=== PATIENT | female | born 1980 | race Caucasian/White ===

== ENCOUNTER 2017-02-06 20:18 | Emergency (ER) | payer BC ==
[2017-02-06 20:31] VITALS: BP 105/53; BMI 17.5
[2017-02-06] MEDS ORDERED: PHENERGAN INJ 25 MG IM ONE (20:36)
[2017-02-06] MEDS ORDERED: DEMEROL INJ IM ONE (20:36)
--- NOTE | 2017-02-06 20:40 | DR.GENAD ---
HPI - PCP Primary Care Physician: nina - HPI Comment HPI Comment: HEADACHE STARTED YESTERDAY. HOME MED DID NOT RELIEVE HEADACHE. NO FEVER. DENIES SINUS DRAINAGE OR TRAUMA. HISTORY MIGRAINE HEADACHE. HAVE HAD HEAD CTS IN PAST. - Complaint/Symptoms Chief Complaint Doctors Comments: HEADACHE, MIGRAINE TIMES ONE DAY WITH N/V. Chief Complaint:: pt c/o migraine meaghan today pt states" it's the worst headache ever pt took fiorecet, toradol phenergan with no relief - Nurses notes reviewed Nurses Notes Review: Yes - Source History Provided: Patient - Mode of Arrival Mode of Arrival: Ambulatory - Timing Onset of Chief Complaint: 02/06/17 Came on: Suddenly - Duration Duration: Constant Duration: Days - Severity Severity: Moderate PMH - PMH Past Medical History: Yes Past Medical History: Migraines Past Medical History Comment: fibromyalgia Past Surgical History: Yes Surgical History: No History - Family History History of Family Medical Conditions: Yes Family Medical History: [place], Hypertension - Social History Does any household member use tobacco: No Alcohol Use: None Do you use any recreational Drugs:: No Lives With: Family Lives Where: Home - infectious screening In the last 2 months have you had wt loss of >10#?: NO Have you had fever, night sweats or hemotysis?: No Have you traveled outside the country in the last 6 months?: No Isolation: Standard ROS - Review of Systems Constitutional: No Symptoms Reported Eyes: Photophobia. negative: Eye Pain, Blurred Vision, Discharge ENTM: No Symptoms Reported. negative: Ear Pain, Nose Discharge, Nose Congestion , Throat Pain Respiratoy: No Symptoms Reported. negative: Productive Cough, Short of Breath, Wheezing, Hemoptysis Cardiovascular: No Symptoms Reported. negative: Chest Pain Gastrointestinal/Abdominal: Nausea, Vomiting. negative: Abdominal Pain, Constipation, Diarrhea Genitourinary: negative: Dysuria, Frequency, Hematuria Neurological: Headache. negative: Weakness, Dizziness Musculoskeletal: No Symptoms Reported Integumentary: No Symptoms Reported Hematologic/Lymphatic: No Symptoms Reported Endocrine: No Symptoms Reported All Other Systems: Reviewed and Negative PE - Vital Signs Vitals: Temperature 98.6 F Pulse Rate 128 Respiratory Rate 22 Blood Pressure 105/53 O2 Sat by Pulse Oximetry 99 - General Limitations: No Limitations General Appearance: Alert - Head Head Exam: Normal Inspection - Eyes Eye exam: Normal Appearance - ENT ENT Exam: Normal External Ear Exam External Ear Exam: Normal External Inspection TM/Canal Exam: Bilateral Normal Nose Exam: Normal Nose Exam Mouth Exam: Normal Inspection Throat Exam: Normal Inspection - Neck Neck Exam: Trachea Midline - Chest Chest Inspection: Symmetric Chest Wall Rise - Respiratory Respiratory Exam: Normal Lung Sounds Bilat Respiratory Exam: Bilateral Clear to Auscultation - Cardiovascular Cardiovascular Exam: Regular Rate, Normal Rhythm, Normal Heart Sounds - Abdominal Exam Abdominal Exam: Normal Bowel Sounds, Soft. negative: Tenderness - Extremities Extremities Exam: Normal Inspection - Back Back Exam: Normal Inspection - Neurologic Neurological Exam: Alert, Oriented X3, CN II-XII Intact, Normal Gait, Reflexes Normal. negative: Motor Sensory Deficit - Psychiatric Psychiatric Exam: Anxious - Skin Skin Exam: Normal Color MDM - Differential Diagnosis Differential Diagnosis: MIGRAINE HEADACHE Course - Treatment Treatment: SEE ORDERS. IM DEMOROL, PAIN IMPROVED. - Reevaluation 1st: Improved - Education/Counseling Education/Counseling: Patient, Family, Education Educated On: Treatment, Diagnosis, Needs for Follow Up - Diagnosis Discharge Problem: Migraine Qualifiers: Migraine type: without aura Status migrainosus presence: without status migrainosus Intractability: intractable Qualified Code(s): G43.019 - Migraine without aura, intractable, without status migrainosus - Discharge Plan Disposition: 01 HOME, SELF-CARE Condition: Stable - Follow ups/Referrals Follow ups/Referrals: NFD,None [Primary Care Provider] - 2 days - Instructions Instructions: Migraine Headache Additional Instructions: RETURN TO ED IF WORSE.
[2017-02-06] MEDS ORDERED: PHENERGAN INJ 25 MG ONE (20:41)
[2017-02-06] MEDS ORDERED: DEMEROL INJ ONE (20:41)
== END 2017-02-06 21:17 | disposition home or self-care (01) ==
LOC: ER 20:26
DX: G43.019 Migraine without aura, intractable, without status migrainosus (principal)
CPT/HCPCS: 96372; 99282; 99283; J2175; J2550

== ENCOUNTER 2017-02-07 12:47 | Emergency (ER) | payer BC ==
[2017-02-07 12:54] VITALS: BP 111/81; BMI 16.5
[2017-02-07] MEDS ORDERED: NS 500 ML IV 500 ML IV ONE (13:27)
[2017-02-07] MEDS ORDERED: DECADRON INJ IV ONE (13:27)
[2017-02-07] MEDS ORDERED: PHENERGAN INJ 25 MG IV ONE (13:27)
[2017-02-07] MEDS ORDERED: TORADOL 30 MG VIAL IVP ONE (13:30)
--- NOTE | 2017-02-07 13:30 | DR.HEADACH ---
HPI - Time Seen Time seen: 13:25 - Primary Care Physician Primary Care Physician: MAXIMINO - Complaint/Symptoms Chief Complaint Doctors Comments: Patient is a frequent visitory to the ED for Migraine treatment. She is presently seeing a neurologist in [place] Chief Complaint:: MIGARINE AND NAUSEA Self Treatment fo Chief Complaint: HAD IT FOR TWO DAYS, BEEN TO ER. GAVE MEDS AND WENT HOME. - Source History Provided: Patient - Mode of Arrival Mode of Arrival: Ambulatory - Timing Onset of Chief Complaint: 02/07/17 PMH - PMH Past Medical History: Yes Past Medical History: Migraines Past Surgical History: Yes Surgical History: No History - Family History History of Family Medical Conditions: Yes Family Medical History: [place], Hypertension - Social History Does any household member use tobacco: No Alcohol Use: None Do you use any recreational Drugs:: No Lives With: Spouse Lives Where: Home - infectious screening In the last 2 months have you had wt loss of >10#?: NO Have you had fever, night sweats or hemotysis?: No Have you traveled outside the country in the last 6 months?: No Isolation: Standard ROS - Review of Systems Eyes: No Symptoms Reported ENTM: No Symptoms Reported Respiratoy: No Symptoms Reported Cardiovascular: No Symptoms Reported Gastrointestinal/Abdominal: No Symptoms Reported Genitourinary: No Symptoms Reported Neurological: No Symptoms Reported Musculoskeletal: No Symptoms Reported Integumentary: No Symptoms Reported Hematologic/Lymphatic: No Symptoms Reported Endocrine: No Symptoms Reported Psychiatric: No Symptoms Reported All Other Systems: Reviewed and Negative PE - Vital Signs Vitals: Temperature 98.5 F Pulse Rate 129 Respiratory Rate 20 Blood Pressure 111/81 - General Limitations: No Limitations General Appearance: Alert - Head Head Exam: Normal Inspection, Atraumatic - Eyes Eye exam: Normal Appearance, PERRL Eyelids: Normal Inspection: Bilateral Pupils: Regular, Round: Bilateral Sclera/Conjunctival: Normal Inspection: Bilateral - ENT ENT Exam: Normal Exam, Normal Oropharynx External Ear Exam: Normal External Inspection TM/Canal Exam: Bilateral Normal Nose Exam: Normal Nose Exam Mouth Exam: Normal Inspection Teeth Exam: Normal Inspection Throat Exam: Normal Inspection - Neck Neck Exam: Normal Inspection, Full ROM - Chest Chest Inspection: Normal Inspection - Respiratory Respiratory Exam: Normal Lung Sounds Bilat Respiratory Exam: Bilateral Clear to Auscultation - Cardiovascular Cardiovascular Exam: Regular Rate, Normal Rhythm - Abdominal Exam Abdominal Exam: Normal Inspection, Normal Bowel Sounds - Discharge Plan Condition: Stable - Follow ups/Referrals Follow ups/Referrals: Patricia GIL [Primary Care Provider] - 3 days - Instructions
[2017-02-07] MEDS ORDERED: NS 1000 ML 1,000 ML ONE (13:40)
[2017-02-07] MEDS ORDERED: TORADOL 30 MG VIAL ONE (13:41)
[2017-02-07] MEDS ORDERED: DECADRON INJ ONE (13:41)
[2017-02-07] MEDS ORDERED: PHENERGAN INJ 25 MG ONE (13:41)
[2017-02-07] MEDS ORDERED: DEMEROL INJ IVP ONE (14:31)
[2017-02-07] MEDS ORDERED: DEMEROL INJ ONE (14:33)
== END 2017-02-07 15:50 | disposition home or self-care (01) ==
LOC: ER 12:55
DX: G43.909 Migraine, unspecified, not intractable, without status migrainosus (principal); R11.0 Nausea
CPT/HCPCS: 96365; 96374; 96375; 99282; 99283; A4222; J1100; J1885; J2175; J2550

== ENCOUNTER 2017-04-14 14:30 | Emergency (ER) | payer BC ==
[2017-04-14 14:37] VITALS: BP 148/93; BMI 16.0
[2017-04-14] MEDS ORDERED: DEMEROL INJ ONE (16:37)
[2017-04-14] MEDS ORDERED: PHENERGAN INJ 25 MG ONE (16:37)
[2017-04-14] MEDS ORDERED: DEMEROL INJ IM ONE (16:42)
--- NOTE | 2017-04-14 16:42 | DR.HEADACH ---
HPI - Time Seen Time seen: 16:30 - Primary Care Physician Primary Care Physician: nina - HPI Comment HPI Comment: Headache - Complaint/Symptoms Chief Complaint Doctors Comments: Headache since yesterday afternoon. She had visual aura initially. Her home maintaince meds did not break the cycle. She' s had Nausea + vomitting. Light and sound makes the headache worse. Chief Complaint:: MIGRAINE STARTING APPROX YESTERDAY AROUND 13 AND WORSENED THIS AM Self Treatment fo Chief Complaint: Lorcet and others - Source History Provided: Patient - Mode of Arrival Mode of Arrival: Ambulatory - Timing Onset of Chief Complaint: 04/13/17 - Location Headache Location: Frontal, Temporal - Quality Quality: Throbbing - Severity Headache Severity: Mild, Severe - Modifying Factors Improves With: Nothing PMH - PMH Past Medical History: Yes Past Medical History: Headaches Past Medical History Comment: FIBROMYALGIA Past Surgical History: No Surgical History: No History - Family History History of Family Medical Conditions: Yes Family Medical History: Cancer Family Medical History Comment: MOTHER, BREAST - Social History Does patient currently use any type of tobacco product: No Have you used tobacco products in the last 12 months: No Type of Tobacco Use: None Does any household member use tobacco: No Alcohol Use: None Do you use any recreational Drugs:: No Lives With: Family Lives Where: Home - infectious screening In the last 2 months have you had wt loss of >10#?: NO Have you had fever, night sweats or hemotysis?: No Have you traveled outside the country in the last 6 months?: No Isolation: Standard ROS - Review of Systems Eyes: No Symptoms Reported ENTM: No Symptoms Reported Respiratoy: No Symptoms Reported Cardiovascular: No Symptoms Reported Gastrointestinal/Abdominal: No Symptoms Reported Genitourinary: No Symptoms Reported Neurological: Headache Musculoskeletal: No Symptoms Reported Integumentary: No Symptoms Reported Hematologic/Lymphatic: No Symptoms Reported Psychiatric: No Symptoms Reported All Other Systems: Reviewed and Negative PE - Vital Signs Vitals: Temperature 98.2 F Pulse Rate 126 Respiratory Rate 20 Blood Pressure 148/93 O2 Sat by Pulse Oximetry 97 - General Limitations: No Limitations General Appearance: Alert, In No Apparent Distress - Head Head Exam: Normal Inspection - Eyes Eye exam: Normal Appearance Eyelids: Normal Inspection: Bilateral Pupils: Regular, Round: Bilateral Sclera/Conjunctival: Normal Inspection: Bilateral - ENT ENT Exam: Normal Exam External Ear Exam: Normal External Inspection TM/Canal Exam: Bilateral Normal Nose Exam: Normal Nose Exam Mouth Exam: Normal Inspection Teeth Exam: Normal Inspection Throat Exam: Normal Inspection - Neck Neck Exam: Normal Inspection - Chest Chest Inspection: Normal Inspection - Respiratory Respiratory Exam: Normal Lung Sounds Bilat Respiratory Exam: Bilateral Clear to Auscultation - Cardiovascular Cardiovascular Exam: Regular Rate - Abdominal Exam Abdominal Exam: Normal Inspection, Normal Bowel Sounds, Soft - Extremities Extremities Exam: Normal Inspection - Back Back Exam: Normal Inspection - Neurologic Neurological Exam: Alert, Oriented X3 - Psychiatric Psychiatric Exam: Normal Affect, Normal Mood - Skin Skin Exam: Warm, Dry, Intact, Normal Color - Diagnosis Discharge Problem: Migraine headache with aura - Discharge Plan Disposition: 01 HOME, SELF-CARE Condition: Stable - Follow ups/Referrals Follow ups/Referrals: BHARGAV GIL [Primary Care Provider] - 3 days - Instructions
[2017-04-14] MEDS ORDERED: PHENERGAN INJ 25 MG IM ONE (16:43)
== END 2017-04-14 16:59 | disposition home or self-care (01) ==
LOC: ER 14:42
DX: G43.109 Migraine with aura, not intractable, without status migrainosus (principal)
CPT/HCPCS: 96372; 99282; J2175; J2550

== ENCOUNTER 2017-05-07 20:56 | Emergency (ER) | payer BC ==
[2017-05-07 21:02] VITALS: BP 109/72; BMI 16.5
[2017-05-07] MEDS ORDERED: PHENERGAN INJ 25 MG IM ONE (22:55)
[2017-05-07] MEDS ORDERED: DEMEROL INJ IM ONE (22:55)
--- NOTE | 2017-05-07 22:56 | DR.GENAD ---
HPI - HPI Comment HPI Comment: HISTORY MIGRAINE . BRAIN CT NORMAL 6 MONTHS AGO. TOOK HOME MEDS WITH NO RELIEF. NAUSEA, VOMITING AND PHOTOPHOBIA PRESENT. - Complaint/Symptoms Chief Complaint Doctors Comments: MIGRAINE HEADACHE SINCE SATURDAY. Chief Complaint:: PT STATES SHE HAS A HX OF MIGRAINES AND THIS ONE BEGAN SATURDAY Self Treatment fo Chief Complaint: PT HAS TAKEN FIORICET AND PHENERGAN WITH NO RELIEF - Nurses notes reviewed Nurses Notes Review: Yes - Source History Provided: Patient, Significant Other - Mode of Arrival Mode of Arrival: Ambulatory - Timing Onset of Chief Complaint: 05/05/17 Came on: Suddenly - Duration Duration: Constant Duration: Days - Severity Severity: Moderate PMH - PMH Past Medical History: Yes Past Medical History: Migraines, Headaches Past Surgical History: No Surgical History: No History - Family History History of Family Medical Conditions: Yes Family Medical History: Cancer, [place] - Social History Do you use any recreational Drugs:: No - infectious screening Have you traveled outside the country in the last 6 months?: No ROS - Review of Systems Constitutional: No Symptoms Reported, Weakness, Fatigue Eyes: No Symptoms Reported ENTM: No Symptoms Reported Respiratoy: No Symptoms Reported Cardiovascular: No Symptoms Reported Gastrointestinal/Abdominal: Nausea, Vomiting Genitourinary: No Symptoms Reported Neurological: Headache, Weakness Musculoskeletal: No Symptoms Reported Integumentary: No Symptoms Reported Hematologic/Lymphatic: No Symptoms Reported Endocrine: No Symptoms Reported All Other Systems: Reviewed and Negative PE - Vital Signs Vitals: Temperature 98.2 F Pulse Rate 112 Respiratory Rate 18 Blood Pressure 109/72 O2 Sat by Pulse Oximetry 98 - General Limitations: No Limitations General Appearance: Alert - Head Head Exam: Normal Inspection - Eyes Eye exam: PERRL, EOMI, Other (PHOTOPHOBIA) - ENT ENT Exam: Normal External Ear Exam External Ear Exam: Normal External Inspection TM/Canal Exam: Bilateral Normal Nose Exam: Normal Nose Exam Mouth Exam: Normal Inspection Throat Exam: Normal Inspection - Neck Neck Exam: Normal Inspection, Trachea Midline. negative: Tenderness, Meningismus, Lymphadenopathy - Chest Chest Inspection: Symmetric Chest Wall Rise - Respiratory Respiratory Exam: Normal Lung Sounds Bilat Respiratory Exam: Bilateral Clear to Auscultation - Cardiovascular Cardiovascular Exam: Regular Rate, Normal Rhythm, Normal Heart Sounds - Abdominal Exam Abdominal Exam: Normal Bowel Sounds, Soft. negative: Tenderness - Extremities Extremities Exam: Normal Inspection - Back Back Exam: Normal Inspection - Neurologic Neurological Exam: Alert, Oriented X3, CN II-XII Intact, Normal Gait, Reflexes Normal. negative: Motor Sensory Deficit - Psychiatric Psychiatric Exam: Anxious - Skin Skin Exam: Normal Color MDM - Additional Information Additional Information Obtained From: Family - Differential Diagnosis Differential Diagnosis: MIGRAINE HEADACHE Course - Treatment Treatment: SEE ORDER. IM MEDS IN ED FOR PAIN, IMPROVED. - Education/Counseling Education/Counseling: Patient, Family, Education Educated On: Treatment, Diagnosis, Needs for Follow Up - Diagnosis Discharge Problem: Migraine Qualifiers: Migraine type: with aura Status migrainosus presence: without status migrainosus Intractability: intractable Qualified Code(s): G43.119 - Migraine with aura, intractable, without status migrainosus - Discharge Plan Disposition: 01 HOME, SELF-CARE Condition: Stable - Follow ups/Referrals Follow ups/Referrals: Patricia GIL [Primary Care Provider] - 3 days - Instructions Instructions: Migraine Headache, [id number] Additional Instructions: RETURN TO ED IF WORSE.
[2017-05-07] MEDS ORDERED: DEMEROL INJ ONE (22:57)
[2017-05-07] MEDS ORDERED: PHENERGAN INJ 25 MG ONE (22:57)
== END 2017-05-07 23:15 | disposition home or self-care (01) ==
LOC: ER 21:08
DX: G43.119 Migraine with aura, intractable, without status migrainosus (principal)
CPT/HCPCS: 96372; 99282; J2175; J2550

== ENCOUNTER 2017-05-26 11:16 | Emergency (ER) | payer BC ==
[2017-05-26 11:22] VITALS: BP 124/90; BMI 16.5
[2017-05-26] MEDS ORDERED: PHENERGAN INJ 25 MG IM ONE (13:19)
[2017-05-26] MEDS ORDERED: DEMEROL INJ IM ONE (13:19)
--- NOTE | 2017-05-26 13:21 | DR.HEADACH ---
HPI - Time Seen Time seen: 13:20 - Primary Care Physician Primary Care Physician: MAXIMINO - HPI Comment HPI Comment: HOME MEDS DID NOT HELP. GETTING WORSE. NO TRAUMA, FEVER OR SINUS SYMTOMS. - Complaint/Symptoms Chief Complaint Doctors Comments: MIGRAINE HEADACHE WITH NAUSEA, VOMITING AND PHOTOPHOBIA TIMES SEVERAL HOURS. Chief Complaint:: MIGRAINE AND NAUSEA Pertinent History: Headache, Nausea/Vomitting Self Treatment fo Chief Complaint: PHENERGAN AND FIORCET. - Reviewed Nurses Notes Reviewed: Yes - Source History Provided: Patient - Mode of Arrival Mode of Arrival: Ambulatory - Timing Onset of Chief Complaint: 05/25/17 - Duration Since Onset: Constant Duration: Hours - Location Headache Location: Generalized - Quality Quality: Throbbing - Severity Headache Severity: Moderate - Context Headache Onset Circumstances: Spontaneous History of: None Prior Work Up: CT - Modifying Factors Improves With: Nothing Worsens: Nothing - Associated Signs and Symptoms Associated Symptoms: Nausea, Vomitting, Photophobia PMH - PMH Past Medical History: Yes Past Medical History: Migraines, Headaches Past Surgical History: No Surgical History: No History - Family History History of Family Medical Conditions: Yes Family Medical History: Cancer, [place] - Social History Does any household member use tobacco: No Alcohol Use: None Do you use any recreational Drugs:: No Lives With: Spouse Lives Where: Home - infectious screening In the last 2 months have you had wt loss of >10#?: NO Have you had fever, night sweats or hemotysis?: No Have you traveled outside the country in the last 6 months?: No Isolation: Standard ROS - Review of Systems Constitutional: No Symptoms Reported. negative: Chills, Fever Eyes: Photophobia. negative: Eye Pain, Discharge ENTM: No Symptoms Reported. negative: Ear Pain, Nose Discharge, Nose Congestion , Throat Pain Respiratoy: No Symptoms Reported Cardiovascular: No Symptoms Reported Gastrointestinal/Abdominal: Nausea, Vomiting. negative: Abdominal Pain Genitourinary: No Symptoms Reported. negative: Dysuria, Frequency, Hematuria Neurological: Headache Musculoskeletal: Muscle Pain Integumentary: No Symptoms Reported Hematologic/Lymphatic: No Symptoms Reported Endocrine: No Symptoms Reported All Other Systems: Reviewed and Negative PE - Vital Signs Vitals: Temperature 98.3 F Pulse Rate 133 Respiratory Rate 20 Blood Pressure 124/90 O2 Sat by Pulse Oximetry 100 - General Limitations: No Limitations General Appearance: Alert - Head Head Exam: Normal Inspection - Eyes Eye exam: Normal Appearance Eyelids: Normal Inspection: Bilateral Pupils: Regular, Round: Bilateral, Reactive: Bilateral Sclera/Conjunctival: Normal Inspection: Bilateral - ENT ENT Exam: Normal External Ear Exam External Ear Exam: Normal External Inspection TM/Canal Exam: Bilateral Normal Nose Exam: Normal Nose Exam Mouth Exam: Normal Inspection Teeth Exam: Normal Inspection Throat Exam: Normal Inspection - Neck Neck Exam: Trachea Midline - Chest Chest Inspection: Symmetric Chest Wall Rise - Respiratory Respiratory Exam: Normal Lung Sounds Bilat Respiratory Exam: Bilateral Clear to Auscultation - Cardiovascular Cardiovascular Exam: Regular Rate, Normal Rhythm, Normal Heart Sounds - Abdominal Exam Abdominal Exam: Normal Bowel Sounds, Soft. negative: Tenderness - Extremities Extremities Exam: Normal Inspection - Neurologic Neurological Exam: Alert, Oriented X3 - Psychiatric Psychiatric Exam: Anxious - Skin Skin Exam: Normal Color MDM - Additional Information Obtained Additional Information Obtained From: Family - Differential Diagnosis Differential Diagnosis: Considerations may include:: Migraine Course - Treatment Treatment: SEE ORDERS, IM PAIN MED, PAIN IMPROVING. - Reevaluation 1st: Improved - Education/Counseling Education/Counseling: Patient, Education Educated On: Treatment, Diagnosis, Needs for Follow Up - Diagnosis Discharge Problem: Migraine headache with aura Qualifiers: Status migrainosus presence: without status migrainosus Intractability: intractable Qualified Code(s): G43.119 - Migraine with aura, intractable, without status migrainosus - Discharge Plan Disposition: 01 HOME, SELF-CARE Condition: Stable - Follow ups/Referrals Follow ups/Referrals: Patricia GIL [Primary Care Provider] - 3 days - Instructions Instructions: Migraine Headache, [id number] Additional Instructions: RETURN TO ED IF WORSE.
[2017-05-26] MEDS ORDERED: DEMEROL INJ ONE (13:23)
[2017-05-26] MEDS ORDERED: PHENERGAN INJ 25 MG ONE (13:23)
== END 2017-05-26 13:50 | disposition home or self-care (01) ==
LOC: ER 11:28
DX: G43.119 Migraine with aura, intractable, without status migrainosus (principal)
CPT/HCPCS: 96372; 99282; J2175; J2550

== ENCOUNTER 2017-07-07 09:02 | Emergency (ER) | payer BC ==
[2017-07-07 09:08] VITALS: BP 118/72; BMI 16.5
--- NOTE | 2017-07-07 09:16 | DR.GENAD ---
HPI - PCP Primary Care Physician: ashley wood - HPI Comment HPI Comment: PAIN NOT RESPONDING TO HOME MEDS. DENIES SINUS SYMTOMS OR TRAUMA. NO FEVER. - Complaint/Symptoms Chief Complaint Doctors Comments: HEADACHE WITH NAUSEA TIMES 3 DAYS. Chief Complaint:: migraine for 3 days.she stated she took her headache meds but the pain is not anybetter. - Nurses notes reviewed Nurses Notes Review: Yes - Source History Provided: Patient - Mode of Arrival Mode of Arrival: Ambulatory - Timing Onset of Chief Complaint: 07/04/17 Came on: Suddenly - Duration Duration: Constant Duration: Days - Severity Severity: Moderate PMH - PMH Past Medical History: Yes Past Medical History: Migraines, Headaches Past Surgical History: No Surgical History: No History - Family History History of Family Medical Conditions: Yes Family Medical History: Cancer, [place] - Social History Does patient currently use any type of tobacco product: No Have you used tobacco products in the last 12 months: No Type of Tobacco Use: None Does any household member use tobacco: No Alcohol Use: None Do you use any recreational Drugs:: No Lives With: Family Lives Where: Home - infectious screening In the last 2 months have you had wt loss of >10#?: NO Have you had fever, night sweats or hemotysis?: No Have you traveled outside the country in the last 6 months?: No Isolation: Standard ROS - Review of Systems Constitutional: No Symptoms Reported Eyes: No Symptoms Reported ENTM: No Symptoms Reported Respiratoy: No Symptoms Reported Cardiovascular: No Symptoms Reported Gastrointestinal/Abdominal: No Symptoms Reported Genitourinary: No Symptoms Reported Neurological: Headache Musculoskeletal: No Symptoms Reported Integumentary: No Symptoms Reported Hematologic/Lymphatic: No Symptoms Reported Endocrine: No Symptoms Reported All Other Systems: Reviewed and Negative PE - Vital Signs Vitals: Temperature 99.4 F Pulse Rate 123 Respiratory Rate 18 Blood Pressure 118/72 O2 Sat by Pulse Oximetry 100 - General Limitations: No Limitations General Appearance: Alert - Head Head Exam: Normal Inspection - Eyes Eye exam: Normal Appearance - ENT ENT Exam: Normal External Ear Exam External Ear Exam: Normal External Inspection TM/Canal Exam: Bilateral Normal Nose Exam: Normal Nose Exam Mouth Exam: Normal Inspection Throat Exam: Normal Inspection - Neck Neck Exam: Trachea Midline - Chest Chest Inspection: Symmetric Chest Wall Rise - Respiratory Respiratory Exam: Normal Lung Sounds Bilat Respiratory Exam: Bilateral Clear to Auscultation - Cardiovascular Cardiovascular Exam: Regular Rate, Normal Rhythm, Normal Heart Sounds - Abdominal Exam Abdominal Exam: Normal Bowel Sounds, Soft. negative: Tenderness - Extremities Extremities Exam: Normal Inspection - Back Back Exam: Normal Inspection - Neurologic Neurological Exam: Alert, Oriented X3, Normal Gait. negative: Motor Sensory Deficit - Psychiatric Psychiatric Exam: Normal Affect, Normal Mood - Skin Skin Exam: Normal Color MDM - Additional Information Additional Information Obtained From: Family - Differential Diagnosis Differential Diagnosis: MIGRAINE HEADACHE Course - Treatment Treatment: SEE MARCY. IM PAIN AND NAUSEA MED IN ED. IMPROVING. - Reevaluation 1st: Improved - Education/Counseling Education/Counseling: Patient, Education Educated On: Treatment, Diagnosis, Needs for Follow Up - Diagnosis Discharge Problem: Migraine headache with aura Qualifiers: Status migrainosus presence: with status migrainosus Intractability: intractable Qualified Code(s): G43.111 - Migraine with aura, intractable, with status migrainosus - Discharge Plan Condition: Stable - Follow ups/Referrals Follow ups/Referrals: NFD,None [Primary Care Provider] - 1 day - Instructions Instructions: Migraine Headache, [id number], Nausea, Adult, [id number] Additional Instructions: RETURN TO ED IF WORSE. CONTINUE WITH MED AT HOME FOR PAIN AND NAUSEA.
[2017-07-07] MEDS ORDERED: DEMEROL INJ IM ONE (09:20)
[2017-07-07] MEDS ORDERED: PHENERGAN INJ 25 MG IM ONE (09:20)
[2017-07-07] MEDS ORDERED: DEMEROL INJ ONE (09:24)
[2017-07-07] MEDS ORDERED: PHENERGAN INJ 25 MG ONE (09:24)
== END 2017-07-07 09:55 | disposition home or self-care (01) ==
LOC: ER 09:15
DX: G43.111 Migraine with aura, intractable, with status migrainosus (principal)
CPT/HCPCS: 96372; 96374; 99282; J2175; J2550

== ENCOUNTER 2017-08-03 10:06 | Emergency (ER) | payer BC ==
[2017-08-03 10:11] VITALS: BP 123/69; BMI 16.5
--- NOTE | 2017-08-03 10:28 | DR.GENAD ---
HPI - PCP Primary Care Physician: flaquita bernal - HPI Comment HPI Comment: WORSE TODAY. HOME MEDS NOT HELPING. - Complaint/Symptoms Chief Complaint Doctors Comments: MIGRAINE HEADACHE TIMES 2 DAYS. Chief Complaint:: pt stated she has had a migraine ,nausea and vomiting for two days. has a hx of migraines. - Nurses notes reviewed Nurses Notes Review: Yes - Source History Provided: Patient - Mode of Arrival Mode of Arrival: Ambulatory - Timing Onset of Chief Complaint: 08/01/17 Came on: Suddenly - Duration Duration: Constant Duration: Days PMH - PMH Past Medical History: Yes Past Medical History: Migraines, Headaches Past Surgical History: No Surgical History: No History - Family History History of Family Medical Conditions: Yes Family Medical History: Cancer, [place] - Social History Does patient currently use any type of tobacco product: No Have you used tobacco products in the last 12 months: No Type of Tobacco Use: None Does any household member use tobacco: No Alcohol Use: None Do you use any recreational Drugs:: No Lives With: Family Lives Where: Home - infectious screening In the last 2 months have you had wt loss of >10#?: NO Have you had fever, night sweats or hemotysis?: No Have you traveled outside the country in the last 6 months?: No Isolation: Standard ROS - Review of Systems Constitutional: No Symptoms Reported Eyes: No Symptoms Reported ENTM: No Symptoms Reported Respiratoy: No Symptoms Reported Cardiovascular: No Symptoms Reported Gastrointestinal/Abdominal: Nausea Genitourinary: No Symptoms Reported Neurological: Headache Musculoskeletal: No Symptoms Reported Integumentary: No Symptoms Reported Hematologic/Lymphatic: No Symptoms Reported All Other Systems: Reviewed and Negative PE - Vital Signs Vitals: Temperature 98.9 F Pulse Rate 132 Respiratory Rate 16 Blood Pressure 123/69 O2 Sat by Pulse Oximetry 99 - General Limitations: No Limitations General Appearance: Alert - Head Head Exam: Normal Inspection - Eyes Eye exam: Normal Appearance - ENT ENT Exam: Normal External Ear Exam External Ear Exam: Normal External Inspection TM/Canal Exam: Bilateral Normal Nose Exam: Normal Nose Exam Mouth Exam: Normal Inspection Throat Exam: Normal Inspection - Neck Neck Exam: Trachea Midline - Chest Chest Inspection: Symmetric Chest Wall Rise - Respiratory Respiratory Exam: Normal Lung Sounds Bilat Respiratory Exam: Bilateral Clear to Auscultation - Cardiovascular Cardiovascular Exam: Regular Rate, Normal Rhythm, Normal Heart Sounds - Abdominal Exam Abdominal Exam: Normal Inspection - Extremities Extremities Exam: Normal Inspection - Back Back Exam: Normal Inspection - Neurologic Neurological Exam: Alert, Oriented X3, Other (PUPILS NORMAL.) - Psychiatric Psychiatric Exam: Normal Affect, Normal Mood - Skin Skin Exam: Normal Color MDM - Differential Diagnosis Differential Diagnosis: MIGRAINE HEADACHE - Diagnosis Discharge Problem: Migraine - Discharge Plan Disposition: 01 HOME, SELF-CARE Condition: Stable - Follow ups/Referrals Follow ups/Referrals: FLAQUITA BERNAL [Primary Care Provider] - 3 days - Instructions Instructions: Nausea, Adult Additional Instructions: RETURN TO ED IF WORSE.
[2017-08-03] MEDS ORDERED: DEMEROL INJ IM ONE (10:29)
[2017-08-03] MEDS ORDERED: PHENERGAN INJ 25 MG IM ONE (10:29)
[2017-08-03] MEDS ORDERED: PHENERGAN INJ 25 MG ONE (10:32)
[2017-08-03] MEDS ORDERED: DEMEROL INJ ONE (10:33)
== END 2017-08-03 10:46 | disposition home or self-care (01) ==
LOC: ER 10:19
DX: G43.909 Migraine, unspecified, not intractable, without status migrainosus (principal)
CPT/HCPCS: 96372; 99282; J2175; J2550

== ENCOUNTER 2017-09-14 10:52 | Emergency (ER) | payer BC ==
[2017-09-14 10:56] VITALS: BP 128/69; BMI 16.5
[2017-09-14] MEDS ORDERED: TORADOL 60 MG VIAL IM ONE (11:54)
[2017-09-14] MEDS ORDERED: BENADRYL INJ 50 MG VIAL IM STA (11:55)
[2017-09-14] MEDS ORDERED: PHENERGAN INJ 25 MG IM ONE (11:55)
--- NOTE | 2017-09-14 12:00 | DR.GENAD ---
HPI - PCP Primary Care Physician: LOUISE - Complaint/Symptoms Chief Complaint Doctors Comments: Patient states she has been having a migraine headache and has been vomiting for the past week not responding to her home medicines of Fiorinal, Phenergan and Toradol. States she took a Fiorinal about an hour ago. States she is a patient of Dr. Gil and she recently had a CT of her head and it was unremarkable. States this is not the worst headache of her life. She denies problems with dizziness, blurred vision or problems with her balance. She denies chest pain or SOB. She denies dysuria, hematuria or recent trauma. Chief Complaint:: PATIENT IS HAVING A MIGRAINE AND VOMITING FOR THE PAST WEEK. - Nurses notes reviewed Nurses Notes Review: Yes - Source History Provided: Patient - Mode of Arrival Mode of Arrival: Ambulatory - Timing Onset of Chief Complaint: 09/07/17 Came on: Gradually - Duration Duration: Intermittent How lon Duration: Weeks - Location Location: diffuse headache - Severity Severity: Moderate - Modifying Factors Worsens:: nothing Improves:: nothing PMH - PMH Past Medical History: Yes Past Medical History: Migraines, Headaches Past Surgical History: No Surgical History: No History - Family History History of Family Medical Conditions: Yes Family Medical History: Cancer, [place] - Social History Does patient currently use any type of tobacco product: No Have you used tobacco products in the last 12 months: No Type of Tobacco Use: None Does any household member use tobacco: No Alcohol Use: None Do you use any recreational Drugs:: No Lives With: Family Lives Where: Home - infectious screening In the last 2 months have you had wt loss of >10#?: NO Have you had fever, night sweats or hemotysis?: No Have you traveled outside the country in the last 6 months?: No Isolation: Standard ROS - Review of Systems Constitutional: No Symptoms Reported. negative: See HPI, Chills, Diaphoresis, Fever, Malaise, Weakness, Irritable, Fatigue, Loss of Appetite, Other Eyes: No Symptoms Reported. negative: See HPI, Eye Pain, Blurred Vision, Tearing, Discharge, Photophobia, Diplopia, Other ENTM: No Symptoms Reported Respiratoy: No Symptoms Reported. negative: See HPI, Productive Cough, Non- Productive Cough, Moist Cough, Dry Cough, Hacking Cough, Barking Cough, Brassy Cough, Orthopnea, Short of Breath, Stridor, Wheezing, Hemoptysis, Other Cardiovascular: No Symptoms Reported. negative: See HPI, Chest Pain, Edema, Palpitations, Syncope, Cyanosis, Skin Mottling, Other Gastrointestinal/Abdominal: No Symptoms Reported, Nausea, Vomiting. negative: See HPI, Abdominal Pain, Constipation, Diarrhea, Food Intolerance, Other Genitourinary: No Symptoms Reported Neurological: No Symptoms Reported, Headache. negative: See HPI, Anxiety, Depressed, Emotional Problems, Numbness, Paresthesia, Pre-existing Deficit, Seizure, Tingling, Tremors, Weakness, Dizziness, Problems Walking, Speech Problem, Other Musculoskeletal: No Symptoms Reported Integumentary: No Symptoms Reported Hematologic/Lymphatic: No Symptoms Reported Endocrine: No Symptoms Reported Psychiatric: No Symptoms Reported. negative: See HPI, Anxiety, Depression, Hallucinations, Excessive crying, Suicidal, Other PE - Vital Signs Vitals: Pulse Rate 118 Respiratory Rate 20 Blood Pressure 128/69 O2 Sat by Pulse Oximetry 100 - General Limitations: No Limitations General Appearance: Alert, In Distress (slight). negative: In No Apparent Distress, Appears Intoxicated, Anxious, Lethargic, Obtunded, Obese, Cachectic, Other - Head Head Exam: Normal Inspection, Atraumatic, Normocephalic - Eyes Eye exam: Normal Appearance, PERRL, EOMI. negative: Scleral Icterus, Conjunctival Injection, Nystagmus, Miosis, Mydrasis, Periorbital Swelling, Periorbital Tenderness, Other - ENT ENT Exam: Normal Exam, Normal Oropharynx, Normal External Ear Exam, Mucous Membranes Moist, TM's Normal Bilaterally External Ear Exam: Normal External Inspection TM/Canal Exam: Bilateral Normal Nose Exam: Normal Nose Exam Mouth Exam: Normal Inspection Throat Exam: Normal Inspection - Neck Neck Exam: Normal Inspection, Full ROM, Trachea Midline - Chest Chest Inspection: Normal Inspection, Symmetric Chest Wall Rise - Respiratory Respiratory Exam: Normal Lung Sounds Bilat Respiratory Exam: Bilateral Clear to Auscultation - Cardiovascular Cardiovascular Exam: Regular Rate, Normal Rhythm, Normal Heart Sounds. negative : Bradycardia, Tachycardia, Irregular Rhythm, Systolic Murmur, Diastolic Murmur , Rubs, Gallop, Clicks, JVD, +S1, +S2, +S3, +S4, Other - Abdominal Exam Abdominal Exam: Normal Inspection, Normal Bowel Sounds, Soft. negative: Distention, Tenderness, Guarding, Rebound, Rigidity, Dimnished Bowel Sounds, Hyperactive Bowel Sounds, Hypoactive Bowel Sounds, Organomegaly, Trauma, Incision, Ascites, Mass, Bruit, Pulsatile Mass, Hernia, Other Abdominal Tenderness: negative: RUQ, RLQ, LUQ, LLQ, Epigastrium, Suprapubic, Diffuse, Mild, Moderate, Severe, Other - Extremities Extremities Exam: Normal Inspection, Full ROM, Normal Capillary Refill. negative: Tenderness, Edema, Joint Swelling, Calf Tenderness, Other - Back Back Exam: Normal Inspection, Full ROM. negative: Tenderness, (R) CVA Tenderness, (L) CVA Tenderness, Muscle Spasm, Paraspinal Tenderness, Vertebral Tenderness, Rashes, (R) Sciatic Notch Tenderness, (L) Sciatic Notch Tendern, (R ) Straight Leg Raise, (L) Straight Leg Raise, Other - Neurologic Neurological Exam: Alert, Oriented X3, CN II-XII Intact, Normal Gait, Reflexes Normal - Psychiatric Psychiatric Exam: Normal Affect, Normal Mood. negative: Depressed, Agitated, Anxious, Flat Affect, Manic, Homicidal Ideation, Suicidal Ideation, Other - Skin Skin Exam: Warm, Dry, Intact, Normal Color - Diagnosis Discharge Problem: Migraine Qualifiers: Migraine type: unspecified Headache Qualifiers: Headache chronicity pattern: chronic headache - Discharge Plan Disposition: 01 HOME, SELF-CARE Condition: Stable - Follow ups/Referrals Follow ups/Referrals: Patricia GIL [Primary Care Provider] - 3 days - Instructions Instructions: Migraine Headache, [id number], Chronic Pain
[2017-09-14] MEDS ORDERED: TORADOL 60 MG VIAL ONE (12:04)
[2017-09-14] MEDS ORDERED: BENADRYL INJ 50 MG VIAL ONE (12:05)
[2017-09-14] MEDS ORDERED: PHENERGAN INJ 25 MG ONE (12:05)
== END 2017-09-14 12:48 | disposition home or self-care (01) ==
LOC: ER 11:01
DX: G43.909 Migraine, unspecified, not intractable, without status migrainosus (principal)
CPT/HCPCS: 96372; 99282; J1200; J1885; J2550

== ENCOUNTER 2017-09-28 13:28 | Emergency (ER) | payer BC ==
[2017-09-28 13:32] VITALS: BP 113/68; BMI 16.8
--- NOTE | 2017-09-28 14:00 | DR.GENAD ---
HPI - PCP Primary Care Physician: FLAQUITA VALVERDE - HPI Comment HPI Comment: MICRAINE HEADACHE WITH N/V TIME 4 DAYS THAT IS NOT RELIEVE WITH HOME MED. NO FEVER. WORSE SINCE YESTERDAY. - Complaint/Symptoms Chief Complaint Doctors Comments: MIGRAINE HEADACHE Chief Complaint:: PATIENT STATED THAT SHE HAS A MIGRAINE AND ALSO HAS N/V. - Nurses notes reviewed Nurses Notes Review: Yes - Source History Provided: Patient - Mode of Arrival Mode of Arrival: Ambulatory - Timing Onset of Chief Complaint: 09/24/17 Came on: Suddenly - Duration Duration: Constant Duration: Days - Severity Severity: Moderate PMH - PMH Past Medical History: Yes Past Medical History: Migraines, Headaches Past Surgical History: No Surgical History: No History - Family History History of Family Medical Conditions: Yes Family Medical History: Cancer, [place] - Social History Does patient currently use any type of tobacco product: No Have you used tobacco products in the last 12 months: No Type of Tobacco Use: None Does any household member use tobacco: No Alcohol Use: None Do you use any recreational Drugs:: No Lives With: Family Lives Where: Home - infectious screening In the last 2 months have you had wt loss of >10#?: NO Have you had fever, night sweats or hemotysis?: No Have you traveled outside the country in the last 6 months?: No Isolation: Standard ROS - Review of Systems Constitutional: No Symptoms Reported Eyes: No Symptoms Reported ENTM: No Symptoms Reported Respiratoy: No Symptoms Reported Cardiovascular: No Symptoms Reported Gastrointestinal/Abdominal: No Symptoms Reported Genitourinary: No Symptoms Reported Neurological: Headache Musculoskeletal: No Symptoms Reported Integumentary: No Symptoms Reported Hematologic/Lymphatic: No Symptoms Reported Endocrine: No Symptoms Reported All Other Systems: Reviewed and Negative PE - Vital Signs Vitals: Temperature 100.3 F Pulse Rate 118 Respiratory Rate 20 Blood Pressure 113/68 O2 Sat by Pulse Oximetry 100 - General Limitations: No Limitations General Appearance: Alert - Head Head Exam: Normal Inspection - Eyes Eye exam: Normal Appearance - ENT ENT Exam: Normal External Ear Exam External Ear Exam: Normal External Inspection TM/Canal Exam: Bilateral Normal Nose Exam: Normal Nose Exam Mouth Exam: Normal Inspection Throat Exam: Normal Inspection - Neck Neck Exam: Normal Inspection - Chest Chest Inspection: Symmetric Chest Wall Rise - Respiratory Respiratory Exam: Normal Lung Sounds Bilat Respiratory Exam: Bilateral Clear to Auscultation - Cardiovascular Cardiovascular Exam: Regular Rate, Normal Rhythm, Normal Heart Sounds - Abdominal Exam Abdominal Exam: Normal Bowel Sounds, Soft. negative: Tenderness - Extremities Extremities Exam: Normal Inspection - Back Back Exam: Normal Inspection - Neurologic Neurological Exam: Alert, Oriented X3 - Psychiatric Psychiatric Exam: Normal Affect, Normal Mood - Skin Skin Exam: Normal Color MDM - Differential Diagnosis Differential Diagnosis: MIGRAINE HEADACHE. Course - Treatment Treatment: SEE ORDERS. - Reevaluation 1st: Improved (WITH IM PAIN MED.) - Education/Counseling Education/Counseling: Patient, Education Educated On: Treatment, Diagnosis, Needs for Follow Up - Diagnosis Discharge Problem: Migraine Qualifiers: Migraine type: with aura Status migrainosus presence: without status migrainosus Intractability: intractable Qualified Code(s): G43.119 - Migraine with aura, intractable, without status migrainosus Headache Qualifiers: Headache type: unspecified Headache chronicity pattern: acute headache Intractability: intractable Qualified Code(s): R51 - Headache - Discharge Plan Disposition: 01 HOME, SELF-CARE Condition: Stable - Follow ups/Referrals Follow ups/Referrals: FLAQUITA VALVERDE [Primary Care Provider] - 3 days - Instructions Instructions: Migraine Headache, [id number] Additional Instructions: RETURN TO ED IF WORSE.
[2017-09-28] MEDS ORDERED: PHENERGAN INJ 25 MG IM ONE (14:04)
[2017-09-28] MEDS ORDERED: DEMEROL INJ IVP ONE (14:04)
[2017-09-28] MEDS ORDERED: PHENERGAN INJ 25 MG ONE (14:18)
[2017-09-28] MEDS ORDERED: DEMEROL INJ ONE (14:18)
== END 2017-09-28 14:41 | disposition home or self-care (01) ==
LOC: ER 13:34
DX: G43.119 Migraine with aura, intractable, without status migrainosus (principal); R51 Headache
CPT/HCPCS: 96372; 99282; J2175; J2550

== ENCOUNTER 2017-12-17 17:35 | Emergency (ER) | payer BC ==
[2017-12-17 17:41] VITALS: BP 120/74; BMI 17.4
[2017-12-17] MEDS ORDERED: DEMEROL INJ IM ONE (19:52)
[2017-12-17] MEDS ORDERED: PHENERGAN INJ 25 MG IM ONE (19:52)
--- NOTE | 2017-12-17 19:52 | DR.HEADACH ---
HPI - Time Seen Time seen: 19:40 - Primary Care Physician Primary Care Physician: gabe - Complaint/Symptoms Chief Complaint:: pt stated she has a hx of mirgraines nad she has had one since saturday night and her meds has not been working. Self Treatment fo Chief Complaint: pt took her home meds for headache - Source History Provided: Patient - Mode of Arrival Mode of Arrival: Ambulatory - Timing Onset of Chief Complaint: 12/14/17 PMH - PMH Past Medical History: Yes Past Medical History: Migraines, Headaches Past Surgical History: No Surgical History: No History - Family History History of Family Medical Conditions: Yes Family Medical History: Cancer, [place] - Social History Does patient currently use any type of tobacco product: No Have you used tobacco products in the last 12 months: No Type of Tobacco Use: None Does any household member use tobacco: No Alcohol Use: None Do you use any recreational Drugs:: No Lives With: Family Lives Where: Home - infectious screening In the last 2 months have you had wt loss of >10#?: NO Have you had fever, night sweats or hemotysis?: No Have you traveled outside the country in the last 6 months?: No Isolation: Standard PE - Vital Signs Vitals: Temperature 98.1 F Pulse Rate 108 Respiratory Rate 18 Blood Pressure 120/74 O2 Sat by Pulse Oximetry 97 - Diagnosis Discharge Problem: Migraine Qualifiers: Migraine type: unspecified Status migrainosus presence: with status migrainosus Intractability: intractable Qualified Code(s): G43.911 - Migraine, unspecified, intractable, with status migrainosus - Discharge Plan Condition: Stable - Follow ups/Referrals Follow ups/Referrals: FLAQUITA VALVERDE [Primary Care Provider] - 2 days - Instructions Instructions: Migraine Headache, [id number] Additional Instructions: RETURN TO ED IF WORSE.
[2017-12-17] MEDS ORDERED: DEMEROL INJ ONE (19:56)
[2017-12-17] MEDS ORDERED: PHENERGAN INJ 25 MG ONE (19:56)
== END 2017-12-17 20:18 | disposition home or self-care (01) ==
LOC: ER 17:44
DX: G43.911 Migraine, unspecified, intractable, with status migrainosus (principal)
CPT/HCPCS: 96372; 99282; J2175; J2550

== ENCOUNTER 2018-01-05 11:45 | Emergency (ER) | payer BC ==
[2018-01-05 11:53] VITALS: BP 144/96; BMI 17.4
--- NOTE | 2018-01-05 14:43 | DR.GENAD ---
HPI - PCP Primary Care Physician: DR. ESCALANTE - Complaint/Symptoms Chief Complaint Doctors Comments: patient presents with complaint of a left frontal migraine that radiates down her neck. She states that this headach started one month ago with a frequency of weekly usually. She states that the fiorinal and tramadol is not helping. She had a EEG in August. Her neurologist is Dr Yoon, she gets botox weekly injection w/o any relief of headache. Chief Complaint:: "I HAVE HAD A MIGRAINE SINCE SATURDAY". Self Treatment fo Chief Complaint: FIORECET AND TRAMADOL 50 MG - Source History Provided: Patient - Mode of Arrival Mode of Arrival: Ambulatory - Timing Onset of Chief Complaint: 01/03/18 PMH - PMH Past Medical History: Yes Past Medical History: Migraines Past Surgical History: No Surgical History: No History - Family History History of Family Medical Conditions: Yes Family Medical History: Diabetes Mellitus, Cancer, [place], Coronary Artery Disease, Hypertension - Social History Does patient currently use any type of tobacco product: No Have you used tobacco products in the last 12 months: No Type of Tobacco Use: None Does any household member use tobacco: No Alcohol Use: None Do you use any recreational Drugs:: No Lives With: Spouse - infectious screening In the last 2 months have you had wt loss of >10#?: NO Have you traveled outside the country in the last 6 months?: No Isolation: Standard ROS - Review of Systems Eyes: No Symptoms Reported ENTM: No Symptoms Reported Respiratoy: No Symptoms Reported Cardiovascular: No Symptoms Reported Gastrointestinal/Abdominal: No Symptoms Reported Genitourinary: No Symptoms Reported Neurological: No Symptoms Reported Musculoskeletal: No Symptoms Reported Integumentary: No Symptoms Reported Hematologic/Lymphatic: No Symptoms Reported Endocrine: No Symptoms Reported Psychiatric: No Symptoms Reported All Other Systems: Reviewed and Negative PE - Vital Signs Vitals: Temperature 99.0 F Pulse Rate 125 Respiratory Rate 20 Blood Pressure 144/96 O2 Sat by Pulse Oximetry 96 - General General Appearance: Alert, In No Apparent Distress - Head Head Exam: Normal Inspection, Atraumatic - Eyes Eye exam: Normal Appearance, PERRL, EOMI - ENT ENT Exam: Normal Exam External Ear Exam: Normal External Inspection TM/Canal Exam: Bilateral Normal Nose Exam: Normal Nose Exam Mouth Exam: Normal Inspection Throat Exam: Normal Inspection - Neck Neck Exam: Normal Inspection, Full ROM - Chest Chest Inspection: Normal Inspection - Respiratory Respiratory Exam: Normal Lung Sounds Bilat Respiratory Exam: Bilateral Clear to Auscultation - Cardiovascular Cardiovascular Exam: Regular Rate, Normal Rhythm - Abdominal Exam Abdominal Exam: Normal Inspection, Normal Bowel Sounds Abdominal Tenderness: negative: RUQ, RLQ, LUQ, LLQ, Epigastrium, Suprapubic, Diffuse, Mild, Moderate, Severe, Other - Extremities Extremities Exam: Normal Inspection, Full ROM - Back Back Exam: Normal Inspection, Full ROM - Neurologic Neurological Exam: Alert, Oriented X3, CN II-XII Intact - Psychiatric Psychiatric Exam: Normal Affect - Skin Skin Exam: Warm, Dry, Intact Course - Treatment Treatment: Patient left without treatment of compazine 10mg/benadryl 50mg IV for her migraine. - Diagnosis Discharge Problem: Migraine headache Qualifiers: Migraine type: with aura Status migrainosus presence: with status migrainosus Intractability: not intractable Qualified Code(s): G43.101 - Migraine with aura , not intractable, with status migrainosus - Discharge Plan Disposition: 07 AGAINST MEDICAL ADVICE Condition: Stable - Follow ups/Referrals Follow ups/Referrals: LEAH ESCALANTE [Primary Care Provider] - 3 days - Instructions
[2018-01-05] MEDS ORDERED: COMPAZINE INJ IVP ONE (14:49)
[2018-01-05] MEDS ORDERED: BENADRYL INJ 50 MG VIAL IV ONE (14:49)
[2018-01-05] MEDS ORDERED: BENADRYL INJ 50 MG VIAL ONE (14:57)
[2018-01-05] MEDS ORDERED: COMPAZINE INJ ONE (14:57)
[2018-01-05] MEDS ORDERED: NS 1000 ML 1,000 ML IV SCH (15:00)
== END 2018-01-05 13:16 | disposition left against medical advice (07) ==
LOC: ER 11:56
DX: G43.101 Migraine with aura, not intractable, with status migrainosus (principal)
CPT/HCPCS: 99281; A4222; J0780; J1200